=== PATIENT | female | born 1940 | race Hispanic/Latino ===

== ENCOUNTER 2018-04-07 10:46 | Day surgery (SDC) | payer MEDICARE ==
[~2018-04-07 10:46] MED LIST: IOPIDINE OS ONE; MYDRIACYL OS ONE; NEOFRIN OS ONE
[2018-04-07 12:32] VITALS: BP 123/67
== END 2018-04-07 10:47 | disposition home or self-care (01) ==
LOC: OR 10:46
PROVIDERS: ATTEND Specialist
DX: H26.491 Other secondary cataract, right eye (principal); I12.9 Hypertensive chronic kidney disease with stage 1 through stage 4 chronic kidney disease, or unspecified chronic kidney disease; M19.90 Unspecified osteoarthritis, unspecified site; N18.2 Chronic kidney disease, stage 2 (mild); K21.9 Gastro-esophageal reflux disease without esophagitis; Z87.891 Personal history of nicotine dependence; Z79.899 Other long term (current) drug therapy; Z91.018 Allergy to other foods; Z98.41 Cataract extraction status, right eye; Z98.42 Cataract extraction status, left eye; Z90.49 Acquired absence of other specified parts of digestive tract; Z85.3 Personal history of malignant neoplasm of breast; Z98.51 Tubal ligation status; Z90.710 Acquired absence of both cervix and uterus; Z98.890 Other specified postprocedural states; Z88.8 Allergy status to other drugs, medicaments and biological substances